=== PATIENT | male | born 2000 ===

== ENCOUNTER 2022-10-31 04:31 | Emergency (ER) | payer SELFPAY ==
[2022-10-31] MEDS ORDERED: ONDANSETRON 4 MG ORAL DISSOLVE TABLET SL STA (05:02)
[2022-10-31] MEDS ORDERED: ANTACID SUSPENSION 30 ML UDC PO ONE (05:15)
[2022-10-31] MEDS ORDERED: LIDOCAINE 2% VISCOUS 15 ML UDC PO ONE (05:15)
--- NOTE | 2022-10-31 05:39 | ED Chest Pain ---
General Chief Complaint: Chest Pain Stated Complaint: CP Nursing Triage Note: Pt presents with c/o chest pain. Pt does not speak belarusian, water pump installer used. Pt states when he lays down he has pain in his chest that is sharp and makes him feel like he can not breathe. Pt reports pain sometimes happens when he is angery, but denies anger tonight. Pt also reports hx of acid reflux. Source: patient, water pump installer Exam Limitations: no limitations, language barrier (BHASKAR SIMMONS MD) History of Present Illness Date Seen by Provider: Oct 31, 2022 Time Seen by Provider: 04:44 Initial Comments This 22-year-old young man presents to the emergency room complaining of chest pain and some shortness of breath when lying flat tonight. Pain is rated as 2/10 at this time but by his description seems like it was worse before he arrived to the emergency room. He has had some episodes before this seemed to start with either when he is angry or when lying flat. This episode started around midnight. He describes heartburn and acid reflux in his throat. He does not take any medications for this. He reports occasional alcohol consumption and states he drank 1 drink when returning home from work tonight. Pain does not seem particularly pleuritic in nature. He has increased discomfort with palpation and pressure to the chest. He does not have any abdominal pain or tenderness. The video language line was used for water pump installer services. (BHASKAR SIMMONS MD) Allergies and Home Medications Allergies Coded Allergies: No Known Drug Allergies (Unverified , 10/31/22) Patient Home Medication List Home Medication List Reviewed: Yes (BHASKAR SIMMONS MD) Review of Systems Review of Systems Constitutional: no symptoms reported EENTM: No Symptoms Reported Respiratory: No Symptoms Reported Cardiovascular: See HPI Gastrointestinal: See HPI Genitourinary: No Symptoms Reported Musculoskeletal: no symptoms reported Skin: no symptoms reported Psychiatric/Neurological: No Symptoms Reported Endocrine: No Symptoms Reported Hematologic/Lymphatic: No Symptoms Reported (BHASKAR SIMMONS MD) Past Dnnxqhi-Vzjwpl-Rouauo Hx Patient Social History Tobacco Use?: Yes Substance use?: No Alcohol Use?: Yes Alcohol Frequency: Once in a while (BHASKAR SIMMONS MD) Past Medical History Surgeries: No Respiratory: No Cardiac: No Neurological: No Genitourinary: No Gastrointestinal: No Musculoskeletal: No Endocrine: No HEENT: No Cancer: No Psychosocial: No Integumentary: No (BHASKAR SIMMONS MD) Physical Exam Vital Signs Vital Signs - First Documented 10/31/22 04:45 Temp 36.5 Pulse 92 Resp 18 B/P (MAP) 135/89 (104) (RADHA JIANG MD) Vital Signs Capillary Refill : Less Than 3 Seconds (BHASKAR SIMMONS MD) Height, Weight, BMI Height: '" Weight: lbs. oz. kg; BMI Method: General Appearance: No Apparent Distress, WD/WN HEENT: PERRL/EOMI, Normal ENT Inspection, Pharynx Normal Neck: Normal Inspection Respiratory: Lungs Clear, Normal Breath Sounds, No Accessory Muscle Use, Other (Anterior chest tender to palpation) Cardiovascular: No Edema, No Murmur, Tachycardia (Regular) Gastrointestinal: Normal Bowel Sounds, Non Tender, Soft; No Distended Extremity: Normal Inspection, No Pedal Edema Neurologic/Psychiatric: Alert, Oriented x3, No Motor/Sensory Deficits, Normal Mood/Affect Skin: Normal Color, Warm/Dry (BHASKAR SIMMONS MD) Progress/Results/Core Measures Results/Orders Lab Results Laboratory Tests Test 10/31/22 06:04 10/31/22 06:08 Range/Units SARS-CoV-2 RNA (RT-PCR) Not Detected Not Detecte White Blood Count 12.3 H 4.3-11.0 10^3/uL Red Blood Count 5.70 H 4.30-5.52 10^6/uL Hemoglobin 16.4 13.3-17.7 g/dL Hematocrit 47 40-54 % Mean Corpuscular Volume 82 80-99 fL Mean Corpuscular Hemoglobin 29 25-34 pg Mean Corpuscular Hemoglobin Concent 35 32-36 g/dL Red Cell Distribution Width 11.9 10.0-14.5 % Platelet Count 256 130-400 10^3/uL Mean Platelet Volume 11.0 9.0-12.2 fL Immature Granulocyte % (Auto) 0 % Neutrophils (%) (Auto) 79 H 42-75 % Lymphocytes (%) (Auto) 16 12-44 % Monocytes (%) (Auto) 4 0-12 % Eosinophils (%) (Auto) 0 0-10 % Basophils (%) (Auto) 0 0-10 % Neutrophils # (Auto) 9.7 H 1.8-7.8 10^3/uL Lymphocytes # (Auto) 1.9 1.0-4.0 10^3/uL Monocytes # (Auto) 0.5 0.0-1.0 10^3/uL Eosinophils # (Auto) 0.0 0.0-0.3 10^3/uL Basophils # (Auto) 0.1 0.0-0.1 10^3/uL Immature Granulocyte # (Auto) 0.0 0.0-0.1 10^3/uL Sodium Level 141 135-145 MMOL/L Potassium Level 3.4 L 3.6-5.0 MMOL/L Chloride Level 109 H 98-107 MMOL/L Carbon Dioxide Level 18 L 21-32 MMOL/L Anion Gap 14 5-14 MMOL/L Blood Urea Nitrogen 7 7-18 MG/DL Creatinine 0.74 0.60-1.30 MG/DL Estimat Glomerular Filtration Rate 130 BUN/Creatinine Ratio 9 Glucose Level 116 H 70-105 MG/DL Calcium Level 9.0 8.5-10.1 MG/DL Corrected Calcium 8.5-10.1 MG/DL Total Bilirubin 0.6 0.1-1.0 MG/DL Aspartate Amino Transf (AST/SGOT) 15 5-34 U/L Alanine Aminotransferase (ALT/SGPT) 19 0-55 U/L Alkaline Phosphatase 78 40-136 U/L Troponin I < 0.028 <0.028 NG/ML Total Protein 8.2 6.4-8.2 GM/DL Albumin 4.8 H 3.2-4.5 GM/DL Serum Alcohol 166 H <10 MG/DL (RADHA JIANG MD) My Orders Orders - RADHA JIANG MD Covid 19 Inhouse Test (10/31/22 06:42) (RADHA JIANG MD) Medications Given in ED Current Medications Medications Dose Ordered Sig/Poncho Route Start Time Stop Time Status Last Admin Dose Admin Al Hydrox/Mg Hydrox/Simethicone 30 ml ONCE ONCE PO 10/31/22 05:15 10/31/22 05:16 DC 10/31/22 05:12 30 ML Lactated Ringer's 1,000 ml @ 0 mls/hr Q0M ONCE IV 10/31/22 06:00 10/31/22 06:02 DC 10/31/22 06:10 0 MLS/HR Lidocaine HCl 15 ml ONCE ONCE PO 10/31/22 05:15 10/31/22 05:16 DC 10/31/22 05:12 15 ML (RADHA JIANG MD) Vital Signs/I&O 10/31/22 04:45 Temp 36.5 Pulse 92 Resp 18 B/P (MAP) 135/89 (104) (RADHA JIANG MD) Blood Pressure Mean: 104 Progress Progress Note : Time: 06:07 Progress Note Patient was initially treated with GI cocktail and Zofran. He did note some i mprovement in his discomfort. When discussing the results of treatment, he was insistent that blood work be obtained for further evaluation even though he improved with treatment. He reports that he has not felt well in the past week. He has had generalized weakness and felt very tired along with the chest discomfort he is feeling tonight. Labs have been ordered along with an i nfluenza and COVID-19 swab. Care is being transitioned to Dr. Jiang to review results with the patient and treat accordingly. (BHASKAR SIMMONS MD) Progress Note : Time: 07:35 Progress Note Patient care assumed at shift change with labs pending. Patient has been resting comfortably, received 1 L of IV fluids. He has no current complaints. Video water pump installer used to provide information for discharge. I have reviewed his CBC and it is normal. Chemistry is normal. Alcohol level is elevated at 166. Patient did receive a COVID test it too was negative. I have also examined the patient, his heart is regular, lungs are clear, abdomen is soft, nondistended and nontender. He has no clinical or objective findings to warrant further testing from the emergency department at this time. Suspect his feelings of malaise and fatigue are related to his intoxication. The patient states that he is last alcohol was sometime "yesterday". Patient will be provided with information on alcohol use. Return precautions provided in both Croatian and Gabonese. At the time of dictation all questions are sought and answered. Patient is stable for discharge. (RADHA JIANG MD) Initial ECG Impression Date: Oct 31, 2022 Initial ECG Impression Time: 05:15 Initial ECG Rate: 110 Initial ECG Rhythm: S.Tach Comment Sinus tachycardia with no ST elevation or depression. No abnormal intervals or axis deviation. (BHASKAR SIMMONS MD) Departure Impression Primary Impression: Atypical chest pain Additional Impression: Alcohol intoxication Qualified Codes: F10.920 - Alcohol use, unspecified with intoxication, uncomplicated Disposition: 01 HOME, SELF-CARE Condition: Improved Departure-Patient Inst. Decision time for Depature: 07:39 (RADHA JIANG MD) Referrals: [facility] (PCP) Primary Care Physician Patient Instructions: Alcohol Intoxication ED Add. Discharge Instructions: Drink water today to stay hydrated. You have no concerning findings on blood work concerning for infection. Your alcohol level was very high this morning and is probably the reason you were feeling bad. If you develeop any new or concerning symptoms, please return to the Emergency Department for re-evaluation. Liliana agua hoy para mantenerte hidratado. No tiene resultados preocupantes en los anlisis de lexie relacionados con la infeccin. Tu nivel de alcohol era muy alto esta maana y probablemente haritha sea la razn por la que te sentas mal. Si desarrolla algn sntoma nuevo o preocupante, regrese al Departamento de Emergencias para pedro nueva evaluacin. BHASKAR SIMMONS MD Oct 31, 2022 05:39 RADHA JIANG MD Oct 31, 2022 07:39
[2022-10-31] MEDS ORDERED: LACTATED RINGERS 1,000 ML 1,000 ML IV ONE (06:00)
[2022-10-31 06:18] LABS: BASOPHILS # (AUTO) 0.1 10^3/uL (0.0-0.1); BASOPHILS % (AUTO) 0 % (0-10); EOSINOPHILS % (AUTO) 0 % (0-10); HEMATOCRIT 47 % (40-54); HEMOGLOBIN 16.4 g/dL (13.3-17.7); LYMPHOCYTES # (AUTO) 1.9 10^3/uL (1.0-4.0); LYMPHOCYTES % (AUTO) 16 % (12-44); MEAN CORPUSCULAR HEMOGLOBIN 29 pg (25-34); MEAN CORPUSCULAR HGB CONC 35 g/dL (32-36); MEAN CORPUSCULAR VOLUME 82 fL (80-99); MONOCYTES # (AUTO) 0.5 10^3/uL (0.0-1.0); MONOCYTES % (AUTO) 4 % (0-12); NEUTROPHILS # (AUTO) 9.7 10^3/uL (1.8-7.8); NEUTROPHILS % (AUTO) 79 % (42-75); PLATELET COUNT 256 10^3/uL (130-400); WHITE BLOOD COUNT 12.3 10^3/uL (4.3-11.0)
[2022-10-31 06:37] LABS: ALANINE AMINOTRANSFERASE 19 U/L (0-55); ALBUMIN 4.8 GM/DL (3.2-4.5); ALKALINE PHOSPHATASE 78 U/L (40-136); BILIRUBIN,TOTAL 0.6 MG/DL (0.1-1.0); BUN/CREATININE RATIO 9; CARBON DIOXIDE 18 MMOL/L (21-32); CHLORIDE 109 MMOL/L (98-107); CREATININE SERUM 0.74 MG/DL (0.60-1.30); GFR ESTIMATED 130; GLUCOSE 116 MG/DL (70-105); POTASSIUM 3.4 MMOL/L (3.6-5.0); SODIUM 141 MMOL/L (135-145); TOTAL PROTEIN 8.2 GM/DL (6.4-8.2)
[2022-10-31 07:55] VITALS: BP 130/72
== END 2022-10-31 07:56 | disposition home or self-care (01) ==
LOC: ER 04:36
DX: R07.89 Other chest pain (principal); F10.129 Alcohol abuse with intoxication, unspecified; R00.0 Tachycardia, unspecified; R53.1 Weakness; Y90.6 Blood alcohol level of 120-199 mg/100 ml; Z20.822 Contact with and (suspected) exposure to COVID-19
CPT/HCPCS: 80053; 84484; 85025; 87636; 93005; G0480; 36415; 80320